=== PATIENT | male | born 1965 | race African-American/Black ===

== ENCOUNTER 2017-11-18 06:20 | Emergency (ER) | payer SELFPAY | END 2017-11-18 06:35 | disposition left against medical advice (07) | LOC: NEPD 06:20 | DX: M25.561 Pain in right knee (principal); Z88.0 Allergy status to penicillin; F17.210 Nicotine dependence, cigarettes, uncomplicated; Z79.899 Other long term (current) drug therapy | CPT/HCPCS: 99281 ==